=== PATIENT | female | born 2000 | race Caucasian/White ===

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

== ENCOUNTER 2025-04-19 23:23 | Emergency (ER) | payer BC, MEDICAID, SELFPAY ==
--- NOTE | 2025-04-20 00:14 | PC.NURSE ---
Pt called for triage, no answer. T/W called Pt cell phone, Pt states I'm okay, I will get seen tomorrow .Pt advised to come back if anything changes.
== END 2025-04-20 01:29 | disposition left against medical advice (07) ==
LOC: HO.ED 04-20 01:10
PROVIDERS: Emergency Provider Emergency Medicine
DX: R10.9 Unspecified abdominal pain (principal); Z53.21 Procedure and treatment not carried out due to patient leaving prior to being seen by health care provider

== ENCOUNTER 2025-08-10 20:56 | Emergency (ER) | payer OTHER, SELFPAY ==
--- NOTE | ~2025-08-10 | XR_ITS ---
CLINICAL HISTORY: constipation 1 view abdomen Comparison: None provided Findings: No pneumoperitoneum or pneumatosis. No abnormal calcifications. No acute fractures. Moderate colonic stool burden. Nonobstructive bowel-gas pattern. IMPRESSION: Moderate colonic stool burden. This document has been electronically signed by: Jamshid South MD on 08/10/2025 22:49:14
[2025-08-10 21:21] VITALS: BP 150/65; PULSE 96; RESP 15; TEMP 36.8; O2SAT 96; BMI 48.8
[2025-08-10 21:51] LABS: MANUAL DIFF FLAG NO
[2025-08-10 22:07] LABS: Hematocrit 44.6 % (37.0-47.0); Hemoglobin 14.7 g/dl (12.0-16.0); Imm Gran Abs Auto 0.03 X10*3/uL (0.00-0.03); Imm Gran Pct Auto 0.3 % (0.0-0.4); Lymphocytes Absolute Auto 3.3 X10*3/uL (1.2-4.9); Mean Corpuscular HGB Conc 33.0 g/dl (31.0-35.0); Mean Corpuscular Hemoglobin 27.4 pg (27.0-33.0); Mean Corpuscular Volume 83.1 fL (80.0-98.0); NRBC Abs Auto 0.000 X10*3/uL (0.0-0.012); NRBC Pct Auto 0.0 /100WBC (0.0-0.2); Platelet Count 366 X10*3/uL (160-400); Red Blood Count 5.37 X10*6/uL (4.20-5.50); White Blood Count 10.1 X10*3/uL (4.8-10.8)
[2025-08-10 22:12] LABS: Alanine Aminotransferase 69 U/L (0-31); Albumin Level 5.0 g/dL (3.5-5.0); Alkaline Phosphatase 79 U/L (39-117); Anion Gap 15 (12-20); Aspartate Amino Transferase 42 U/L (5-31); Blood Urea Nitrogen 10 mg/dL (9-16); Calcium 9.6 mg/dL (8.4-10.2); Carbon Dioxide 20 mmol/L (22-29); Chloride 109 mmol/L (96-108); Creatinine Clr Calc Pharmacy 159.3; Estimated Glomerular Filt Rate > 60; Lipase 14 U/L (8-78); Magnesium 2.1 mg/dL (1.6-2.6); Potassium 3.9 mmol/L (3.3-5.1); Sodium 140 mmol/L (135-145); Total Protein 8.1 g/dL (6.5-8.0)
[2025-08-10 23:34] VITALS: BP 114/63; PULSE 94; RESP 15; TEMP 36.4; O2SAT 98
--- NOTE | 2025-08-11 00:42 | ED_ITS ---
HPI - General Adult General Chief complaint: Abdominal Pain Stated complaint: Abdominal pain Time Seen by Provider: 08/11/25 00:19 Source: patient Limitations: no limitations History of Present Illness ED Provider: Tanja Carrera PA-C HPI narrative: 25-year-old female with a history of Crohn's disease, morbid obesity and chronic constipation who presents with constipation x5 days. Patient states she has been off her typical bowel regimen, in his now developed constipation. Denies abdominal distention inability to pass flatus, nausea or vomiting. Related Data Allergies Allergy/AdvReac Type Severity Reaction Status Date / Time Penicillins Allergy Swelling Verified 08/10/25 21:24 tomato Allergy Rash Verified 08/10/25 21:23 Review of Systems 2 Review of Systems: Yes all other systems are reviewed and are negative Constitutional: Constitutional: Denies fatigue and Denies fever(s) Cardiovascular: Cardiovascular: Denies chest pain Gastrointestinal: Gastrointestinal: Denies abdominal pain, Reports constipation, Denies nausea and Denies vomiting Endocrine: Endocrine: Denies fatigue PMFSH Past Medical History Attestation statement: The following information was validated with the patient. Social History Social History Advance Directives: No Advance Directives Information Provided: Yes Do you have a plan to hurt others: No Plan Physical Exam ED Vital Signs: Vital Signs - 24 hr 08/10/25 21:21 08/10/25 23:34 Temperature 98.2 F 97.6 F Pulse Rate 96 94 Respiratory Rate 15 15 Blood Pressure 150/65 H 114/63 Pulse Oximetry 96 98 Oxygen Delivery Method Room Air BMI result Body Mass Index 48.8 Const Other: Alert Orientation/consciousness: patient oriented x3 Resp Effort & Inspection: normal respiratory effort Cardio Other: Normal peripheral perfusion GI Other: Abdomen is soft, nondistended, obese no tenderness no guarding Skin Other: Warm dry no rash Neuro General: patient oriented x3, gait normal, no focal motor deficits and CN's II- XI intact bilaterally Psych Other: Cooperative Medical Decision Making Medical Decision Making [facility] Narrative: 25-year-old female with a history of Crohn's disease, morbid obesity and chronic constipation who presents with constipation x5 days. Patient states she has been off her typical bowel regimen, in his now developed constipation. Denies abdominal distention inability to pass flatus, nausea or vomiting. Problem: Crohn's, obesity, chronic constipation History: Per patient I have considered the following differential diagnoses: Constipation, fecal impaction, bowel obstruction Plan: Screening labs and a KUB were obtained from triage, no lab abnormalities, the patient is constipated we will send with home care instructions . To note there was no obstructive pattern on the x-ray, she does not warrant a CT scan, furthermore she has no obstructive symptoms. I have independently reviewed the following tests: Labs: No leukocytosis, not anemic, no electrolyte abnormality, not KUB:Findings: No pneumoperitoneum or pneumatosis. No abnormal calcifications. No acute fractures. Moderate colonic stool burden. Nonobstructive bowel-gas pattern. IMPRESSION: Moderate colonic stool burden. Differential Diagnosis Differential Diagnoses: The differential diagnosis associated with the presentation includes See medical decision-making Admission/Observation Consideration of admission/observation: Escalation of care including admission/observation considered Not applicable Lab Data MDM Lab Attestation statement: I reviewed the patient's lab results. 08/10/25 21:47 08/10/25 21:47 Labs: Lab Results 08/10/25 Range/Units 21:47 WBC 10.1 (4.8-10.8) X10*3/uL RBC 5.37 (4.20-5.50) X10*6/uL Hgb 14.7 (12.0-16.0) g/dl Hct 44.6 (37.0-47.0) % MCV 83.1 (80.0-98.0) fL MCH 27.4 (27.0-33.0) pg MCHC 33.0 (31.0-35.0) g/dl RDW 13.1 (11.0-16.0) % Plt Count 366 (160-400) X10*3/uL MPV 11.0 (9.4-12.3) fL Immature Gran % (Auto) 0.3 (0.0-0.4) % Neut % (Auto) 59.7 (45-73) % Lymph % (Auto) 33.0 (20-40) % Gregory % (Auto) 5.9 (2-11) % Eos % (Auto) 0.7 (0-4) % Baso % (Auto) 0.4 (0-2) % Lymph # (Auto) 3.3 (1.2-4.9) X10*3/uL Gregory # (Auto) 0.6 (0.1-1.2) X10*3/uL Eos # (Auto) 0.1 (0.0-0.4) X10*3/uL Baso # (Auto) 0.0 (0.0-0.2) X10*3/uL Abs Immat Gran (auto) 0.03 (0.00-0.03) X10*3/uL Absolute Neuts (auto) 6.0 (2.0-8.3) x10*3/uL Absolute Nucleated RBC 0.000 (0.0-0.012) X10*3/uL Nucleated RBC % (auto) 0.0 (0.0-0.2) /100WBC Sodium 140 (135-145) mmol/L Potassium 3.9 (3.3-5.1) mmol/L Chloride 109 H (96-108) mmol/L Carbon Dioxide 20 L (22-29) mmol/L Anion Gap 15 (12-20) BUN 10 (9-16) mg/dL Creatinine 0.63 (0.5-1.4) mg/dL Estim Creat Clear Calc 159.3 Estimated GFR > 60 Random Glucose 92 (60-115) mg/dL Calcium 9.6 (8.4-10.2) mg/dL Magnesium 2.1 (1.6-2.6) mg/dL Total Bilirubin 0.5 (0.0-1.0) mg/dL AST 42 H (5-31) U/L ALT 69 H (0-31) U/L Alkaline Phosphatase 79 (39-117) U/L Total Protein 8.1 H (6.5-8.0) g/dL Albumin 5.0 (3.5-5.0) g/dL Lipase 14 (8-78) U/L Beta HCG, Quant < 2 mIU/mL Radiology Impression Discussion of test interpretation with radiology: I have reviewed the radiologist's reading. Discharge Plan Discharge Clinical Impression: Constipation Patient Disposition: Home, Self-Care Instructions: Constipation (ED) Additional Instructions: All of your screening labs were normal, you were found to be considerably constipated. See home care instructions. Continue to use the stool softener twice a day. Use the MiraLax as a bowel prep. Drank 8 oz every 1-2 hours, until you begin having multiple large volume bowel movements . Once you have evacuated your current stool burden, stay on a bowel regimen indefinitely. Follow up with your primary care provider as needed. Print Language: [place]an
[2025-08-11 00:57] VITALS: BP 114/63; PULSE 94; RESP 15; TEMP 36.4; O2SAT 98
== END 2025-08-11 00:58 | disposition home or self-care (01) ==
PROVIDERS: Emergency Provider Emergency Medicine
DX: K59.00 Constipation, unspecified (principal); R10.9 Unspecified abdominal pain
CPT/HCPCS: 36415; 74018; 80053; 83690; 83735; 84702; 85025; 99282; 99283

== ENCOUNTER → 2025-08-10 22:20 | Outpatient (BNV) | payer BC, MEDICAID, SELFPAY | PROVIDERS: Visit Provider Radiology Diagnostic Radiology | DX: K59.00 Constipation, unspecified (principal) | CPT/HCPCS: 74018 ==